=== PATIENT | male | born 1955 | race Two or more races ===

== ENCOUNTER → 2023-12-25 12:41 | Outpatient (REF) | payer OTHER, SELFPAY | LOC: RAD 12:41 | PROVIDERS: ATTENDING PHYSICIAN Physician Assistant; FAMILY PHYSICIAN Internal Medicine; REFERRING PHYSICIAN Internal Medicine Nephrology | DX: I77.0 Arteriovenous fistula, acquired (principal) | CPT/HCPCS: 93990 ==